=== PATIENT | female | born 1970 | race Caucasian/White ===

== ENCOUNTER 2017-05-07 02:11 | Emergency (ER) | payer SELFPAY ==
[~2017-05-07] VITALS: Ht 160 cm; Wt 90.0 kg
[2017-05-07] MEDS ORDERED: ACETAMINOPHEN 325 MG TABLET PO ONE (02:30)
[2017-05-07 04:01] VITALS: BP 132/88
== END 2017-05-07 04:10 | disposition home or self-care (01) ==
LOC: EMS 02:12
DX: S09.90XA Unspecified injury of head, initial encounter (principal); J45.909 Unspecified asthma, uncomplicated; Z87.891 Personal history of nicotine dependence; Z91.011 Allergy to milk products; W19.XXXA Unspecified fall, initial encounter; Y93.9 Activity, unspecified; Y92.9 Unspecified place or not applicable; Y99.9 Unspecified external cause status
CPT/HCPCS: 70450; 99284

== ENCOUNTER 2020-11-19 22:04 | Emergency (ER) | payer OTHER ==
[~2020-11-19] VITALS: Ht 162.6 cm; Wt 81.8 kg
[2020-11-19] MEDS ORDERED: ACETAMINOPHEN 325 MG TABLET PO ONE (23:40)
[2020-11-20] MEDS ORDERED: HYDROCODONE/ACETAMINOPHEN 5-325 MG TABLET PO ONE
[2020-11-20] MEDS ORDERED: AMOXICILLIN TRIHYDRATE 250 MG CAPSULE PO ONE
[2020-11-20 00:05] VITALS: BP 132/73
== END 2020-11-20 00:09 | disposition home or self-care (01) ==
LOC: EMS 22:04
DX: K08.89 Other specified disorders of teeth and supporting structures (principal); F15.90 Other stimulant use, unspecified, uncomplicated; Z87.891 Personal history of nicotine dependence
CPT/HCPCS: 99284; Z7502; Z7610